=== PATIENT | male | born 1985 | race Two or more races ===

== ENCOUNTER 2021-01-01 01:06 | Emergency (ER) | payer OTHER ==
[~2021-01-01] VITALS: Ht 182.9 cm; Wt 97.5 kg
[~2021-01-01 01:06] MED LIST: MOTRIN800 MG PO; ORPH100T PO; SEPTRA DS TABLE1 TAB PO
[2021-01-01] MEDS ORDERED: NORFLEX100MG PO (04:46)
[2021-01-01] MEDS ORDERED: BENADRYL ALLERG25 MG PO (04:46)
[2021-01-01] MEDS ORDERED: KETO10TA2 PO (04:46)
[2021-01-01] MEDS ORDERED: MUPIROCIN15 GM TOP (04:47)
[2021-01-01] MEDS ORDERED: INTESTINEX680 M2 PO (04:50)
[2021-01-01] MEDS ORDERED: CLEOCIN HCL300 MG PO (04:50)
== END 2021-01-01 05:02 | disposition home or self-care (01) ==
LOC: ER 01:06
DX: M62.838 Other muscle spasm (principal); R21 Rash and other nonspecific skin eruption

== ENCOUNTER 2021-02-14 20:54 | Emergency (ER) | payer OTHER ==
[~2021-02-14] VITALS: Ht 182.9 cm; Wt 96.2 kg
[~2021-02-14 20:54] MED LIST changes: +BENADRYL ALLERG25 MG PO; +CLEOCIN HCL300 MG PO; +INTESTINEX680 M2 PO; +KETO10TA2 PO; +MUPIROCIN15 GM TOP; +NORFLEX100MG PO
[2021-02-15] MEDS ORDERED: NORFLEX100MG PO (02:38)
[2021-02-15] MEDS ORDERED: KETO10TA2 PO (02:38)
== END 2021-02-15 02:40 | disposition home or self-care (01) ==
LOC: ER 20:54
DX: M62.838 Other muscle spasm (principal); E11.65 Type 2 diabetes mellitus with hyperglycemia

== ENCOUNTER 2022-02-25 20:34 | Emergency (ER) | payer OTHER ==
[~2022-02-25] VITALS: Ht 182.9 cm; Wt 77.1 kg
[2022-02-26] MEDS ORDERED: PEPCID40 MG PO (03:07)
[2022-02-26] MEDS ORDERED: JANUMET 50-5001 EACH PO (03:07)
[2022-02-26] MEDS ORDERED: METOCLOPRAMIDE H5 M1 PO (03:07)
== END 2022-02-26 04:22 | disposition home or self-care (01) ==
LOC: ER 20:34
DX: K21.9 Gastro-esophageal reflux disease without esophagitis (principal); R53.81 Other malaise; E11.65 Type 2 diabetes mellitus with hyperglycemia; Z91.013 Allergy to seafood

== ENCOUNTER → 2022-11-24 | Emergency (ER) | payer OTHER ==
[~2022-11-24] VITALS: Ht 182.9 cm; Wt 93.0 kg
[~2022-11-24] MED LIST changes: +JANUMET 50-5001 EACH PO; +METOCLOPRAMIDE H5 M1 PO; +PEPCID40 MG PO
== END | disposition home or self-care (01) ==
LOC: ER 11:48
DX: A05.9 Bacterial foodborne intoxication, unspecified (principal); E11.9 Type 2 diabetes mellitus without complications; Z87.09 Personal history of other diseases of the respiratory system; Z91.013 Allergy to seafood

== ENCOUNTER 2023-09-04 19:08 | Emergency (ER) | payer OTHER ==
[~2023-09-04] VITALS: Ht 175.3 cm; Wt 95.3 kg
[2023-09-04] MEDS ORDERED: JARDIANCE10 MG PO (19:23)
[2023-09-04] MEDS ORDERED: ACETAMINOPHEN 500 MG GEL..CAP PO ONE (20:30)
[2023-09-04] MEDS ORDERED: ORPHENADRINE CITRATE 30 MG/ML AMPUL IM ONE (20:30)
[2023-09-04] MEDS ORDERED: DICLOFENAC SODI75 MG PO (22:09)
[2023-09-04] MEDS ORDERED: NORFLEX100MG PO (22:09)
== END 2023-09-04 23:30 ==
LOC: ER 19:08
DX: S00.93XA Contusion of unspecified part of head, initial encounter (principal); W10.8XXA Fall (on) (from) other stairs and steps, initial encounter; Y93.89 Activity, other specified; Y92.018 Other place in single-family (private) house as the place of occurrence of the external cause; Y99.9 Unspecified external cause status; Z91.013 Allergy to seafood; E11.9 Type 2 diabetes mellitus without complications; Z79.84 Long term (current) use of oral hypoglycemic drugs

== ENCOUNTER 2024-05-05 09:35 | Outpatient (CLI) | payer OTHER ==
[~2024-05-05 09:35] MED LIST changes: +ADVIL DUAL ACT1 EACH PO; +DICLOFENAC SODI75 MG PO; +JARDIANCE10 MG PO; +VOLTAREN ARTHRI20 GM TOP
== END 2024-05-05 09:36 | disposition home or self-care (01) ==
LOC: NUCLEAR 09:35
PROVIDERS: ATTEND Specialist
DX: I87.2 Venous insufficiency (chronic) (peripheral) (principal); E11.8 Type 2 diabetes mellitus with unspecified complications; E11.40 Type 2 diabetes mellitus with diabetic neuropathy, unspecified; Z12.11 Encounter for screening for malignant neoplasm of colon; Z12.5 Encounter for screening for malignant neoplasm of prostate

== ENCOUNTER → 2024-05-06 08:46 | Outpatient (CLI) | payer OTHER | END | disposition home or self-care (01) | LOC: NUCLEAR 05-04 11:00 | PROVIDERS: ATTEND Specialist | DX: E11.40 Type 2 diabetes mellitus with diabetic neuropathy, unspecified (principal); E11.8 Type 2 diabetes mellitus with unspecified complications ==